=== PATIENT | male | born 1980 | race Caucasian/White ===

== ENCOUNTER 2024-02-28 09:22 | Emergency (ER) | payer OTHER, SELFPAY ==
[2024-02-28 09:31] VITALS: BP 140/72; PULSE 112; TEMP 38.3; O2SAT 97; BMI 80.7
[2024-02-28] MEDS: IBUPROFEN 400 MG TABLET 800 MG PO (10:22)
--- NOTE | 2024-02-28 10:27 | ED_ITS ---
HPI HPI - General Adult General Chief complaint: Fever Stated complaint: FEVER/LOWER EXTREMITY PAIN Time Seen by Provider: 02/28/24 09:59 Source: patient Mode of arrival: walk-in Limitations: no limitations History of Present Illness HPI narrative: Patient is a 43-year-old male who is presenting to the ER today with chief complaint of febrile illness along with chronic venous stasis. Patient states he has not seen a physician since Dr. Vicente has retired. Patient's mom sees Dr. Claire and Dr. Vicente's old office, patient has not seen Dr. Claire yet. He did have a appointment scheduled months ago, but did not make it to the appointment. Patient is here for several reasons. Patient has a fever, which is therefore because of the elevated heart rate. Patient did not go to work today, he needs a work note which is his chief concern. Patient also has minimal pinkish discoloration to right lower extremity is been there for months to years. Patient has no new symptoms of headache, neck pain, shortness of breath, ear pain or sore throat. No chest pain or shortness of breath. No abdominal pain nausea or vomiting. Patient states the extremity swelling is equal to his lower extremities, not new or acute. Patient has minimal venous stasis noted to the right leg which has been there for months to years All systems are negative except as noted/marked. All systems reviewed and otherwise negative. Nurses note and vital signs reviewed and patient is not hypoxic. General: The patient appears well and in no apparent distress. Patient is resting comfortably on cart. Patient is not toxic, lethargic, or listless Skin: Warm, dry, no pallor noted. There is no rash noted. No petechiae, purpura. Head: Normocephalic, atraumatic Eye: Normal conjunctiva, no drainage, EOMI. PERRL Ears, Nose, Mouth, and Throat: oral mucosa is moist. Nares patent. Mouth without vesicles. Cardiovascular: Regular Rate and Rhythm, no murmur, gallop, rub Respiratory: Patient is in no distress, no accessory muscle use, lungs are clear to auscultation, no wheezing, rales or rhonchi Back: non-tender, no CVA tenderness bilaterally to percussion. No CT LS midline pain GI: Obese, no flank pain bilateral, no tenderness to palpation, no masses appreciated. No rebound, guarding, or rigidity noted. No distention Musculoskeletal: Patient has full range of motion of all of the extremities, no motor, sensory, or focal neurological deficits. Patient has chronic lymphedema to bilateral extremities, patient has minimal pinkish hue discoloration to right lower extremity that is been present for months to months, not acute. No acute signs of cellulitis. Patient has intermittent dry areas of skin to his heels and lower extremities, no secondary signs of cellulitis or infection. Neurological: A&O x4, normal speech Psychiatric: Cooperative Related Data Home Medications ?Medication ?Instructions ?Recorded ?Confirmed amitriptyline 50 mg tablet 100 mg PO DAILY 02/28/24 02/28/24 Allergies Allergy/AdvReac Type Severity Reaction Status Date / Time No Known Drug Allergies Allergy Verified 02/28/24 09:37 Opioid HPI Opioid Management Most Recent Opioid Data: No Data to Display PFSH PFSH Social History Little interest or pleasure in doing things: not at all Feeling down, depressed, or hopeless: not at all Exam Constitutional Vital Signs, click to edit/add: Last Vital Signs Temp 100.9 F H 02/28/24 09:31 Pulse 112 H 02/28/24 09:31 Resp 20 02/28/24 09:31 BP 140/72 02/28/24 09:31 Pulse Ox 97 02/28/24 09:31 O2 Del Method Room Air 02/28/24 09:31 Course Vital Signs Vital signs: Vital Signs Temperature 100.9 F H 02/28/24 09:31 Pulse Rate 112 H 02/28/24 09:31 Respiratory Rate 20 02/28/24 09:31 Blood Pressure 140/72 02/28/24 09:31 Pulse Oximetry 97 02/28/24 09:31 Oxygen Delivery Method Room Air 02/28/24 09:31 Temperature 100.9 F H 02/28/24 09:31 Pulse Rate 112 H 02/28/24 09:31 Respiratory Rate 20 02/28/24 09:31 Blood Pressure 140/72 02/28/24 09:31 Pulse Oximetry 97 02/28/24 09:31 Oxygen Delivery Method Room Air 02/28/24 09:31 Medical Decision Making MDM Narrative Medical decision making narrative: Patient needs no acute testing at this time. Education on elevation of lower extremities was discussed at bedside. Patient has minimal venous stasis noted to his right lower extremity. Patient understands the importance of following up with PCP for further lab testing. Patient is in no testing in years since he seen Dr. Vicente. Work note was given. Education on febrile illness was discussed as well. Patient had Tylenol prior to arrival. Patient was given Motrin. Patient has no recent sick contacts. Patient works at [employer] Patient has no symptoms at this time at all except not feeling well secondary to fever. No indication for acute testing. Patient can use [id number] test if needed. Patient agrees with this plan, no questions at discharge. Patient has no acute signs of cellulitis to his leg. Education of venous stasis was done at bedside and on discharge paperwork Discharge Plan Discharge Stand Alone Forms: Work/School Release Chief Complaint: Fever Clinical Impression: Febrile illness, acute, Venous stasis dermatitis Patient Disposition: Home, Self-Care Time of Disposition Decision: 10:24 Condition: Fair Prescriptions / Home Meds: No Action amitriptyline 50 mg tablet 100 mg PO DAILY Rx Instructions: at bedtime Print Language: Luxembourger Instructions: Fever in Adults (ED), Stasis Dermatitis (ED), Lymphedema (ED), Venous Insufficiency (DC) Additional Instructions: Elevate legs at nighttime as discussed with putting some type of left for 1 to 2 feet underneath the bed to help elevate the foot of the bed to help with swelling. You need to follow-up with an established PCP with Dr. Claire as discussed for further testing. Increase fluids at home, Gatorade, Powerade, or water. Alternate using DayQuil, NyQuil, and Flonase. Add Mucinex as well as needed. Alternate Tylenol and Motrin every 4 hours to help with fever control, body aches or joint pain. Use [id number] vitamin C, vitamin D3, and zinc to help fight infection and help with her immune system. Discharge Date/Time: 02/28/24 10:33
== END 2024-02-28 10:33 | disposition home or self-care (01) ==
PROVIDERS: Emergency Provider Emergency Medicine
DX: R50.9 Fever, unspecified (principal); I87.2 Venous insufficiency (chronic) (peripheral); E66.9 Obesity, unspecified; Z68.45 Body mass index [BMI] 70 or greater, adult
CPT/HCPCS: 99282

== ENCOUNTER 2024-03-23 06:25 | Emergency (ER) | payer OTHER, SELFPAY ==
[2024-03-23 06:30] VITALS: BP 152/68; PULSE 106; TEMP 38.7; O2SAT 96; BMI 48.8
--- OUTSIDE RECORDS SUMMARY | 2024-03-23 06:49 | XMS_ITS | CCD ---
Author Organization [facility] Care Team Providers Care Patrol Driver Name Role Phone DONOVAN NAVARRO Attending Unavailable DONOVAN NAVARRO Consulting Unavailable DONOVAN NAVARRO Admitting Unavailable DR ALLEN DIANE Primary Care Unavailable ANNA PIERCE Attending Unavailable Js Claire Attending Unavailable Amena Mcduffie Attending Unavailable Js Claire Attending Unavailable Allergies Allergy Classification Reported Allergen(s) Allergy Type Date of Onset Reaction(s) Facility (1 source) No Known Medication Allergies; Translations: [No Known Medication Allergies] Propensity to adverse reactions (disorder) [facility] Repository Problems Active Problems Problem Classification Problem Date Documented Da te Episodic/Chronic Unclassified (2 sources) COUGH, UNSPECIFIED; Translations: [COUGH, UNSPECIFIED] Onset: 09-25-2021 Viral infection (1 source) COVID-19; Translations: [COVID-19] Onset: 09-25-2021 Past or Other Problems Problem Classification Problem Date Documented Da te Episodic/Chronic Unclassified (1 source) COUGH, UNSPECIFIED; Translations: [COUGH, UNSPECIFIED] Onset: 09-24-2021 Results Test Name Value Interpretation Reference Range [facility] Family Medicine Office/Clini c Noteon 03-02-2024 Family Medicine Office/Clinic Note Family Medicine Office/Clinic Note Chief Complaint Concerns regarding management of obesity and obstructive sleep apnea HPI Staff Danielle is a 43 year old male presenting to establish care No ER report and cannot obtain before his appt, l/m at med records to send info Patients paperwork says seen for fever illness, acute and venous stasis dermatitis increase fluids, dayquil, nyquil alternating and flonase, mucinex as needed, tylenol/motrin for fever, body aches, vit c, cit d3 and zinc Establish Care: History: sleep apnea Any previous diagnosis: History of seeing any specialist: for sleep apnea follows every 6 months When was your last doctors visit: couple years Last provider: Jules Any recent labs: none Health Maintenance UTD: Colonoscopy: none PSA: none Acute: ER follow up seen Tuesday 02/27 Current issues/complaints: History of Present Illness The patient is a 43-year-old male presenting for consultation on weight management and concerns related to obstructive sleep apnea. He has a history of morbid obesity, with a body mass index noted to be 70 or greater. This condition has persisted for several years, impacting his daily activities and quality of life. The patient is a former smoker, which he ceased some time ago, and reports infrequent alcohol consumption. He describes challenges in receiving appropriate equipment for his continuous positive airway pressure (CPAP) therapy for obstructive sleep apnea, noting difficulties with the supplier???s provision of incorrect parts. The patient has been managing these issues by purchasing components independently. He has expressed interest in weight management interventions, including bariatric surgery, although he has concerns about insurance coverage. The patient reports no current smoking or significant alcohol use. Review of Systems PHQ Score Initial Depression Screen Score: 1 SCORE Physical Exam Vitals & Measurements T: 36.8 ???C(Oral) HR: 100(Peripheral) RR: 20 BP: 130/86 SpO2: 99% HT: 70 in HT: 177.8 cm WT: 222.1 kg WT: 488.62 lb BMI: 70.26 General: alert, no acute distress ENMT: oral mucosa moist Cardiovascular: Regular rate and rhythm, normal peripheral perfusion Respiratory: Lungs clear to auscultation, respirations non labored Extremities: chronic venous stasis changes of the legs, redness in the right leg Neurological: oriented x 4, level of consciousness appropriate for age, CN II-XII intact, motor strength equal & normal bilaterally, speech normal Abdomen: Soft, Non-tender, Non-distended, + Bowel sounds Assessment/Plan 1. Cellulitis (L03.90: Cellulitis, unspecified) At this time I am concerned that the redness of the right lower extremity is more due to cellulitis versus chronic venous stasis changes. I am concerned because the patient had a fever and no blood work is done. Will request records. Will start the patient on Keflex. Ordered: [facility] [place] Ambulatory Referral 2. Excessive dietary caloric intake (R63.2: Polyphagia) Referral to [facility]. Discussed diet and exercise. Discussed the reason for bariatric surgery given the patient's BMI over 70. Ordered: [facility] [place] Ambulatory Referral 3. Insomnia (G47.00: Insomnia, unspecified) Will continue the patient on amitriptyline at this time. Ordered: [facility] External Ambulatory Referral 4. Obstructive sleep apnea syndrome (G47.33: Obstructive sleep apnea (adult) (pediatric)) Noted issues with CPAP equipment and suggested ensuring correct components through supplier coordination. Reinforced the importance of using CPAP consistently to manage obstructive sleep apnea and mitigate associated risks. Ordered: Body Mass Index (BMI) documented 3008F Current tobacco non-user 1036F Depression Screening Negative 3352F [facility] [place] Amb[place] Referral Most recent diastolic blood pressure 80-89 mm Hg 3079F Systolic BP 130-139 mm Hg (Most Recent) 3075F 5. Body mass index [BMI] 70 or greater, adult (Z68.45: Body mass index [BMI] 70 or greater, adult) BMI education added. Diet and exercise advised. Ordered: Body Mass Index (BMI) documented 3008F Current tobacco non-user 1036F Depression Screening Negative 3352F [facility] [place] Ambulatory Referral Most recent diastolic blood pressure 80-89 mm Hg 3079F Systolic BP 130-139 mm Hg (Most Recent) 3075F 6. Former smoker (Z87.891: Personal history of nicotine dependence) No current intervention required as patient has successfully ceased smoking. Advised continued abstinence to maintain respiratory health. Ordered: Body Mass Index (BMI) documented 3008F Current tobacco non-user 1036F Depression Screening Negative 3352F Most recent diastolic blood pressure 80-89 mm Hg 3079F Systolic BP 130-139 mm Hg (Most Recent) 3075F 7. Morbid obesity with body mass index (BMI) greater than or equal to 70 in adult (E66.01: Morbid (severe) obesity due to excess calories) Addressed the potential benefits and risks of bariatr (more content not included)... Normal [facility] Comment on above: Result Comment: Electronically Signed By : Dakotah DARLING, Js Walters\.sukh\Date and Time Signed: 03/02/24 07:59 EDT Covid-19 PCR (CVDTB)on 09-01 SARS-CoV-2 (COVID-19) RNA DELIA+probe Ql (Unsp spec) Detected Critically abnormal NOT DETECTED [facility] Comment on above: Result Comment: This test is not yet ronnie roved or cleared by the [place] Food and Drug Administration (FDA). This test was developed by [employer], [place], [place]. The performance characteristics of this test were validated by [facility]. The results are not intended to be used as the sole means for clinical diagnosis or patient management decisions. [facility] is authorized under Clinical Laboratory Improvement Amendments (CLIA) to perform high- complexity testing. This test is not yet approved or cleared by the [place] FDA. When there are no FDA-approved or cleared tests available, and other criteria are met, FDA can make tests available under an emergency access mechanism called an Emergency Use Authorization (EUA). The EUA for this test is supported by the [place] of Health and Human Service's declaration that circumstances exist to justify the emergency use of in vitro diagnostics for the detection and/or diagnosis of the virus that causes COVID-19. This EUA will remain in effect for the duration of the COVID-19 declaration justifying emergency of IVDs, unless it is terminated or revoked by the FDA (after which the test may no longer be used). Performed By: #### C VDTBH #### [facility] [address] [place] [address] Dr. Jessa Mcdaniel INFLUENZA A AND B AGon 09-24 [facility] SEE BELOW Normal [facility] Comment on above: Result Comment: Negative for Flu A prote in angiten. Infection due to Flu A cannot be ruled out. Flu A angiten in the sample may be below the detection limit of the test. Performed By: #### I NFLUAB #### [facility] [address] [place] [address] Dr. Jessa Mcdaniel INFLUBNEG SEE BELOW Normal [facility] Comment on above: Result Comment: Negative for Flu B prote in antigen. Infection due to Flu B cannot be ruled out. Flu B antigen in the sample may be below the detection limit of the test. Performed By: #### I NFLUAB #### [facility] [address] [place] [address] Dr. Jessa Mcdaniel INFLUENZA A AG Negative Normal NEGATIVE SEE COMMENT [facility] Comment on above: Performed By: #### INFLUAB #### [facility] [address] [place], [place] [address] Dr. Jessa Mcdaniel INFLUENZA B AG Negative Normal NEGATIVE SEE COMMENT [facility] Comment on above: Performed By: #### INFLUAB #### [facility] [address] [place], [place] [address] Dr. Jessa Mcdaniel INTERNAL CONTROLS Within Normal Limits Normal Within Normal Limits [facility] Comment on above: Performed By: #### INFLUAB #### [facility] [address] [place], [place] [address] Dr. Jessa Mcdaniel Encounters Encounter Date Encounter Type Care Provider Facility Start: 06-01-2024 ambulatory Js Claire Facility :[facility] Start: 03-02-2024 End: 03-02-2024 ambulatory Js Claire Facility:[facility] Lina christina Start: 01-26-2024 ambulatory Amena Mcduffie Facility: [facility] Start: 09-09-2023 End: 09-09-2023 ambulatory ANNA PIERCE Not Available Start: 09-24-2021 End: 09-24-2021 ambulatory DONOVAN NAVARRO Facility: Payers Date Payer Category Payer Unknown [id number] [id number] 1980 Unknown [id number] 1980 Unknown [id number] 1980 Unknown [id number] 1959 Unknown [id number] Clinical Note 03-02-2024 Note Date & Type Note Facility 03-02-2024 Note Patient Education Nutrition BMI for Adults Body mass index (BMI) is a number found using a person's weight and height. BMI can help tell how much of a person's weight is made up of fat. BMI does not measure body fat directly. It is used instead of tests that directly measure body fat, which can be difficult and expensive. What are BMI measurements used for? BMI is useful to: ??? Find out if your weight puts you at higher risk for medical problems. ??? Help recommend changes, such as in diet and exercise. This can help you reach a healthy weight. BMI screening can be done again to see if these changes are working. How is BMI calculated? Your height and weight are measured. The BMI is found from those numbers. This can be done with U.S. or metric measurements. Note that charts and online BMI calculators are available to help you find your BMI quickly and easily without doing these calculations. To calculate your BMI in U.S. measurements: 1. Measure your weight in pounds (lb). 2. Multiply the number of pounds by 703. ??? So, for an adult who weighs 150 lb, multiply that number by 703: 150 x 703, which equals 105,450. 3. Measure your height in inches. Then multiply that number by itself to get a measurement called inches squared. ??? So, for an adult who is 70 inches tall, the inches squared measurement is 70 inches x 70 inches, which equals 4,900 inches squared. 4. Divide the total from step 2 (number of lb x 703) by the total from step 3 (inches squared): 105,450 ? 4,900 = 21.5. This is your BMI. To calculate your BMI in metric measurements: 1. Measure your weight in kilograms (kg). ??? For this example, the weight is 70 kg. 2. Measure your height in meters (m). Then multiply that number by itself to get a measurement called meters squared. ??? So, for an adult who is 1.75 m tall, the meters squared measurement is 1.75 m x 1.75 m, which equals 3.1 meters squared. 3. Divide the number of kilograms (your weight) by the meters squared number. In this example: 70 ? 3.1 = 22.6. This is your BMI. What do the results mean? BMI charts are used to see if you are underweight, normal weight, overweight, or obese. The following guidelines will be used: ??? Underweight: BMI less than 18.5. ??? Normal weight: BMI between 18.5 and 24.9. ??? Overweight: BMI between 25 and 29.9. ??? Obese: BMI of 30 or above. BMI is a tool and cannot diagnose a condition. Talk with your health care provider about what your BMI means for you. Keep these notes in mind: ??? Weight includes fat and muscle. Someone with a muscular build, such as an athlete, may have a BMI that is higher than 24.9. In cases like these, BMI is not a correct measure of body fat. ??? If you have a BMI of 25 or higher, your provider may need to do more testing to find out if excess body fat is the cause. ??? BMI is measured the same way for males and females. Females usually have more body fat than males of the same height and weight. Where to find more information For more information about BMI, including tools to quickly find your BMI, go to: ??? Centers for Disease Control and Prevention: cdc.gov ??? [place] Heart Association: heart.org ??? National Heart, Lung, and Blood [place]: nhlbi.nih.gov This information is not intended to replace advice given to you by your health care provider. Make sure you discuss any questions you have with your health care provider. Document Revised: 01/07/2023 Document Reviewed: 12/31/2022 [employer] Patient Education ? 2023 [employer]. [facility] Summary Purpose Family History No Family History Records FoundNo Family History Records FoundNo Family History Records Found Advance Directives No Advanced Directives Records FoundNo Advanced Directives Records FoundNo Advanced Directives Records Found Additional Source Comments (unrecognized sect ion and content) No Status Records FoundNo Status Records FoundNo Status Records Found INFORMATION SOURCE (unrecogn ized section and content) DATE CREATED AUTHOR 09/25/2021 [facility] DATE CREATED AUTHOR AUTHOR'S ORGANIZ ATION 09/11/2023 [facility] DATE CREATED AUTHOR AUTHOR'S ORGANIZ ATION 03/14/2024 [facility] FOR RECORDS PERTAINING TO PATIENTS WHO ARE OR HAVE BEEN ENROLLED IN A CHEMICAL DEPENDENCY/SUBSTANCEABUSE PROGRAM, SOME INFORMATION MAY BE OMITTED. This clinical summary was aggregated from multiple sources. Caution should be exercised in using it in the provision of clinical care. This summary normalizes information from multiple sources, and as a consequence, information in this document may materially change the coding, format and clinical context of patient data. In addition, data may be omitted in some cases. CLINICAL DECISIONS SHOULD BE BASED ON THE PRIMARY CLINICAL RECORDS. [facility] [employer] [facility]. provides no warranty or guarantee of the accuracy or completeness of information in this document.
[2024-03-23] MEDS: ACETAMINOPHEN 500 MG TABLET 1000 MG PO (06:52)
[2024-03-23 07:04] LABS: Influenza Virus A Antigen Negative; Influenza Virus B Antigen Negative; Internal Control Within Normal Limits
[2024-03-23 07:04] LABS: Internal Control Within Normal Limits; SARS-CoV-2 Ag NEGATIVE (NEGATIVE)
--- NOTE | 2024-03-23 07:11 | XR_ITS ---
The [address] [address] Patient Name: DANIELLE SCHULTE MRN: [id number] date: 1980 Sex: M Assigned Patient Location: ER Current Patient Location: ER Accession/Order Number: [id number] Exam Date: 03/23/2024 07:42 Report Date: 03/23/2024 07:52 At the request of: RAMON MOSQUEDA Procedure: XR chest 2V EXAMINATION: XR chest 2V HISTORY: fever COMPARISON: No relevant comparison available. FINDINGS: LUNGS: No significant pulmonary parenchymal abnormalities. VASCULATURE: No increased pulmonary vasculature. PLEURA: No pneumothorax, effusion, or pleural thickening. CARDIAC: No cardiomegaly or cardiac silhouette abnormality. MEDIASTINUM: No visible mass or adenopathy. BONES: No fracture or visible bone lesion. OTHER: Negative. XR/XR chest 2V IMPRESSION: 1. No acute cardiopulmonary process. Electronically authenticated by: RASHID LEBRON Date: 03/23/2024 07:52
--- NOTE | 2024-03-23 07:33 | US_ITS ---
[address] [address] Patient Name: DANIELLE SCHULTE MRN: [id number] date: 1980 Sex: M Assigned Patient Location: ER Current Patient Location: ER Accession/Order Number: [id number] Exam Date: 03/23/2024 07:55 Report Date: 03/23/2024 08:33 At the request of: RAMON MOSQUEDA Procedure: US venous doppler LE RT EXAM: US venous doppler LE RT HISTORY: leg redness COMPARISON: None. TECHNIQUE: Grayscale, color and Doppler FINDINGS: Region: Right leg Thrombus: None Flow: Normal Augmentation: Normal Compressibility: Normal US/US venous doppler LE RT IMPRESSION: No deep or superficial vein thrombus in the right leg Electronically authenticated by: DIANNE CAN Date: 03/23/2024 08:33
--- NOTE | 2024-03-23 07:35 | ED.GENADUL1 ---
HPI HPI - General Adult General Chief complaint: Fever Stated complaint: fever Time Seen by Provider: 03/23/24 07:11 Source: patient Mode of arrival: walk-in Limitations: no limitations History of Present Illness HPI narrative: Patient presents ED complaining of fever. He said it started yesterday. He had really no other symptoms. He said maybe a mild headache but no cough no shortness of breath. No abdominal pain. No nausea vomiting. No urinary symptoms. Patient does have chronic venous stasis and he has been dealing with cellulitis on the right lower extremity. He was seen about a month ago and put on Keflex and the redness and cellulitis got a lot better on his leg. He said he bumped his leg yesterday and he cannot really tell if the redness is worse but to me the leg looks pretty red and it is warm. No tenderness. This could be the source of his fever. Vital signs stable, slightly hypertensive, fever. Tylenol was ordered as well as Toradol IV. Patient is resting comfortably in the bed no other complaints at this time Related Data Home Medications ?Medication ?Instructions ?Recorded ?Confirmed amitriptyline 50 mg tablet 100 mg PO DAILY 02/28/24 03/23/24 Previous Rx's ?Medication ?Instructions ?Recorded doxycycline hyclate 100 mg capsule 100 mg PO BID 10 days #20 caps 03/23/24 Allergies Allergy/AdvReac Type Severity Reaction Status Date / Time No Known Drug Allergies Allergy Verified 03/23/24 06:32 Opioid HPI Opioid Management Most Recent Opioid Data: Last Pain Scale 1 03/23/24 08:36 03/23/24 Last JUL Pain Assessment 03/23/24 08:36 Review of Systems ROS Status of ROS 10 or more systems reviewed and unremarkable except as noted in history and below PFSH PFSH Social History Little interest or pleasure in doing things: not at all Feeling down, depressed, or hopeless: not at all Exam Narrative Exam Narrative: Time Seen: [] Vital Signs: [Per nurse's notes.] General: [Alert] Skin: [Warm, dry, right lower extremity is erythematous from ankle to just below the knee. Circumferential. Warm to touch. No tenderness. Normal sensation and pulses. Chronic venous stasis skin changes bilateral lower extremities as well Head: [Normocephalic, atraumatic.] Neck: [Supple, trachea midline.] Eye: [Pupils are equal, round and reactive to light, extraocular movements are intact, normal conjunctiva.] Ears, nose, mouth and throat: oral mucosa moist. Cardiovascular: [Regular rate and rhythm, no murmur.] Respiratory: [Lungs are clear to auscultation, respirations are non-labored, breath sounds are equal.] Chest wall: [No tenderness, no deformity.] Gastrointestinal: [Obesity, soft, nontender, non distended, normal bowel sounds.] MSK: 5 out of 5 muscle strength x 4 extremities no calf pain or edema Lymphatics: [No lymphadenopathy.] Psychiatric: [Cooperative, appropriate mood & affect.] Neurological: [Alert and oriented to person, place, time, and situation, no focal neurological deficit observed.] Constitutional Vital Signs, click to edit/add: Last Vital Signs Temp 99.6 F 03/23/24 08:32 Pulse 97 H 03/23/24 08:32 Resp 20 03/23/24 08:32 BP 144/73 H 03/23/24 08:32 Pulse Ox 96 03/23/24 08:32 O2 Del Method Room Air 03/23/24 08:32 Course Vital Signs Vital signs: Vital Signs Temperature 101.6 F H 03/23/24 06:30 Pulse Rate 106 H 03/23/24 06:30 Respiratory Rate 20 03/23/24 06:30 Blood Pressure 152/68 H 03/23/24 06:30 Pulse Oximetry 96 03/23/24 06:30 Oxygen Delivery Method Room Air 03/23/24 06:30 Temperature 99.6 F 03/23/24 08:32 Pulse Rate 97 H 03/23/24 08:32 Respiratory Rate 20 03/23/24 08:32 Blood Pressure 144/73 H 03/23/24 08:32 Pulse Oximetry 96 03/23/24 08:32 Oxygen Delivery Method Room Air 03/23/24 08:32 Medical Decision Making MDM Narrative Medical decision making narrative: Patient's labs show a mildly elevated white blood cell count. Lactate is normal. Patient does have evidence of cellulitis on the right lower extremity. DVT study was negative. Patient does not have signs of sepsis. Instructed to start doxycycline outpatient watch for any signs or symptoms of worsening cellulitis fevers chills vomiting or any further concerns return to ED if worsening symptoms. Otherwise follow-up with family doctor outpatient. Patient is agreeable and comfortable with care plan for home. Differential Diagnosis Differential Diagnosis: Cellulitis, DVT, viral syndrome, pneumonia, UTI Lab Data Lab results reviewed: Yes I reviewed the patient's lab results Labs: Lab Results 03/23/24 03/23/24 03/23/24 Range/Units 06:30 06:31 07:18 WBC (4.0-11.0) 10^3/uL RBC (4.70-6.10) 10^6/uL Hgb (14.0-18.0) g/dL Hct (42.0-54.0) % MCV (80.0-94.0) fL MCH (25.9-34.0) pg MCHC (29.9-35.2) g/dL RDW (11.0-15.0) % Plt Count (150-450) 10^3/uL MPV (9.5-13.5) fL Neut % (Auto) (43.0-75.0) % Lymph % (Auto) (20.5-60.0) % [place] % (Auto) (1.7-12.0) % Eos % (Auto) (0.9-7.0) % Baso % (Auto) (0.2-2.0) % Neut # (Auto) (1.4-6.5) 10^3/uL Lymph # (Auto) (1.2-3.8) 10^3/uL [place] # (Auto) (0.3-0.8) 10^3/uL Eos # (Auto) (0.0-0.7) 10^3/uL Baso # (Auto) (0.0-0.1) 10^3/uL Abs Immat Gran (auto) (0.00-0.03) 10^3/uL Imm/Tot Granulo (auto) (0.0-0.5) % Sodium (136-145) mmol/L Potassium (3.5-5.1) mmol/L Chloride (98-107) mmol/L Carbon Dioxide (21.0-32.0) mmol/L Anion Gap BUN (7.0-18.0) mg/dL Creatinine (0.70-1.30) mg/dL Est GFR ( Amer) (>=60 mL/min/1.73m^2) Est GFR (Non-Af Amer) (>=60 mL/min/1.73m^2) BUN/Creatinine Ratio Glucose (74-106) mg/dL Lactate (0.4-2.0) mmol/L Calcium (8.5-10.1) mg/dL Total Bilirubin (0.2-1.0) mg/dL AST (15-37) U/L ALT (16-63) U/L Alkaline Phosphatase (46-116) U/L Total Protein (6.4-8.2) g/dL Albumin (3.4-5.0) g/dL Globulin g/dL Albumin/Globulin Ratio Urine Color (YELLOW) Urine Clarity (CLEAR) Urine pH (5.0-9.0) Ur Specific [place] (1.005-1.025) Urine Protein (NEG/TRACE) mg/dL Urine Glucose (UA) (NEGATIVE) mg/dL Urine Ketones (NEGATIVE) mg/dL Urine Occult Blood (NEGATIVE) Urine Nitrite (NEGATIVE) Urine Bilirubin (NEGATIVE) Urine Urobilinogen (0.2-1.0) EU/dL Ur Leukocyte Esterase (NEGATIVE) Influenza Type A Ag Negative Influenza Type B Ag Negative SARS-CoV-2 Ag (CV2AG) Negative (NEGATIVE) Streptococcus Screen Negative 03/23/24 03/23/24 03/23/24 Range/Units 07:28 07:36 08:40 WBC 12.7 H (4.0-11.0) 10^3/uL RBC 4.75 (4.70-6.10) 10^6/uL Hgb 13.5 L (14.0-18.0) g/dL Hct 40.0 L (42.0-54.0) % MCV 84.2 (80.0-94.0) fL MCH 28.4 (25.9-34.0) pg MCHC 33.8 (29.9-35.2) g/dL RDW 14.0 (11.0-15.0) % Plt Count 193 (150-450) 10^3/uL MPV 9.3 L (9.5-13.5) fL Neut % (Auto) 85.7 H (43.0-75.0) % Lymph % (Auto) 8.3 L (20.5-60.0) % [place] % (Auto) 5.4 (1.7-12.0) % Eos % (Auto) 0.0 L (0.9-7.0) % Baso % (Auto) 0.2 (0.2-2.0) % Neut # (Auto) 10.9 H (1.4-6.5) 10^3/uL Lymph # (Auto) 1.1 L (1.2-3.8) 10^3/uL [place] # (Auto) 0.7 (0.3-0.8) 10^3/uL Eos # (Auto) 0.0 (0.0-0.7) 10^3/uL Baso # (Auto) 0.0 (0.0-0.1) 10^3/uL Abs Immat Gran (auto) 0.05 H (0.00-0.03) 10^3/uL Imm/Tot Granulo (auto) 0.4 (0.0-0.5) % Sodium 135 L (136-145) mmol/L Potassium 3.6 (3.5-5.1) mmol/L Chloride 97 L (98-107) mmol/L Carbon Dioxide 25.9 (21.0-32.0) mmol/L Anion Gap 15.7 BUN 14.0 (7.0-18.0) mg/dL Creatinine 1.15 (0.70-1.30) mg/dL Est GFR ( Amer) >60 (>=60 mL/min/1.73m^2) Est GFR (Non-Af Amer) >60 (>=60 mL/min/1.73m^2) BUN/Creatinine Ratio 12.2 Glucose 110 H (74-106) mg/dL Lactate 0.9 (0.4-2.0) mmol/L Calcium 9.0 (8.5-10.1) mg/dL Total Bilirubin 1.0 (0.2-1.0) mg/dL AST 22 (15-37) U/L ALT 40 (16-63) U/L Alkaline Phosphatase 58 (46-116) U/L Total Protein 8.3 H (6.4-8.2) g/dL Albumin 3.8 (3.4-5.0) g/dL Globulin 4.5 g/dL Albumin/Globulin Ratio 0.8 Urine Color Lt. yellow (YELLOW) Urine Clarity Clear (CLEAR) Urine pH 7.0 (5.0-9.0) Ur Specific [place] 1.010 (1.005-1.025) Urine Protein Negative (NEG/TRACE) mg/dL Urine Glucose (UA) Negative (NEGATIVE) mg/dL Urine Ketones Negative (NEGATIVE) mg/dL Urine Occult Blood Negative (NEGATIVE) Urine Nitrite Negative (NEGATIVE) Urine Bilirubin Negative (NEGATIVE) Urine Urobilinogen 1.0 (0.2-1.0) EU/dL Ur Leukocyte Esterase Negative (NEGATIVE) Influenza Type A Ag Influenza Type B Ag SARS-CoV-2 Ag (CV2AG) (NEGATIVE) Streptococcus Screen Imaging Data Chest x-ray: Radiologist's impression: ITS Impressions Chest X-Ray 03/23/24 07:11 IMPRESSION: 1. No acute cardiopulmonary process. Electronically authenticated by: RASHID LEBRON Date: 03/23/2024 07:52 Venous Doppler Study 03/23/24 07:33 IMPRESSION: No deep or superficial vein thrombus in the right leg Electronically authenticated by: DIANNE CAN Date: 03/23/2024 08:33 Discharge Plan Discharge Chief Complaint: Fever Clinical Impression: Cellulitis Patient Disposition: Home, Self-Care Time of Disposition Decision: 08:51 Condition: Good Mode of Transportation: Private Vehicle Prescriptions / Home Meds: New doxycycline hyclate 100 mg capsule 100 mg PO BID 10 Days Qty: 20 0RF No Action amitriptyline 50 mg tablet 100 mg PO DAILY Rx Instructions: at bedtime Print Language: Uzbek Instructions: Cellulitis (ED) Referrals: Physician,Non-Staff, MD [Primary Care Provider] - 1 week
[2024-03-23 07:37] LABS: Internal Control Within Normal Limits; Strep A Antigen Screen Negative
[2024-03-23 07:51] LABS: Bilirubin Urine NEGATIVE (NEGATIVE); Blood Urine NEGATIVE (NEGATIVE); Clarity Urine CLEAR (CLEAR); Color Urine LT. YELLOW (YELLOW); Glucose Urine UA NEGATIVE (NEGATIVE); Ketones Urine NEGATIVE (NEGATIVE); Leukocyte Esterase Urine NEGATIVE (NEGATIVE); Nitrite Urine NEGATIVE (NEGATIVE); Protein Urine NEGATIVE (NEG/TRACE)
[2024-03-23 07:52] LABS: Urine Microscopic Indicated NO
[2024-03-23 08:04] LABS: Lactate/Lactic Acid 0.9 mmol/L (0.4-2.0)
[2024-03-23 08:13] LABS: Alanine Aminotransferase 40 U/L (16-63); Albumin Globulin Ratio 0.8; Albumin Level 3.8 g/dL (3.4-5.0); Alkaline Phosphatase 58 U/L (46-116); Anion Gap 15.7; Aspartate Amino Transferase 22 U/L (15-37); BUN Creatinine Ratio 12.2; Carbon Dioxide 25.9 mmol/L (21.0-32.0); Chloride 97 mmol/L (98-107); Estimated GFR (African America >60 (>=60 mL/min/1.73m^2); Estimated GFR (Non-African Ame >60 (>=60 mL/min/1.73m^2); Globulin 4.5 g/dL; Glucose 110 mg/dL (74-106); Potassium 3.6 mmol/L (3.5-5.1); Sodium 135 mmol/L (136-145); Total Protein 8.3 g/dL (6.4-8.2)
[2024-03-23 08:32] VITALS: BP 144/73; PULSE 97; TEMP 37.6; O2SAT 96
[2024-03-23] MEDS: KETOROLAC TROMETHAMINE 30 MG/ML VIAL 15 MG IVP (08:36)
[2024-03-23 08:44] LABS: Basophils Percent Auto 0.2 % (0.2-2.0); Hemoglobin 13.5 g/dL (14.0-18.0); Immature Granulocytes Abs Auto 0.05 10^3/uL (0.00-0.03); Immature Granulocytes Pct Auto 0.4 % (0.0-0.5); Lymphocytes Absolute Auto 1.1 10^3/uL (1.2-3.8); Lymphocytes Percent Auto 8.3 % (20.5-60.0); Mean Corpuscular HGB Conc 33.8 g/dL (29.9-35.2); Mean Corpuscular Hemoglobin 28.4 pg (25.9-34.0); Mean Corpuscular Volume 84.2 fL (80.0-94.0); Mean Platelet Volume 9.3 fL (9.5-13.5); Monocytes Absolute Auto 0.7 10^3/uL (0.3-0.8); Monocytes Percent Auto 5.4 % (1.7-12.0); Neutrophils Absolute Auto 10.9 10^3/uL (1.4-6.5); Neutrophils Percent Auto 85.7 % (43.0-75.0); Platelet Count 193 10^3/uL (150-450); Red Blood Count 4.75 10^6/uL (4.70-6.10); White Blood Count 12.7 10^3/uL (4.0-11.0)
== END 2024-03-23 09:18 | disposition home or self-care (01) ==
PROVIDERS: Emergency Medicine; Emergency Provider Emergency Medicine
DX: L03.115 Cellulitis of right lower limb (principal); R50.9 Fever, unspecified; I87.8 Other specified disorders of veins
CPT/HCPCS: 36415; 71046; 80053; 81003; 83605; 85025; 87040; 87070; 87804; 87811; 87880; 93971; 96374; 99285; J1885